=== PATIENT | male | born 1980 | race Caucasian/White ===

== ENCOUNTER 2017-05-18 15:54 | Emergency (ER) | payer OTHER ==
[~2017-05-18] VITALS: Ht 180.3 cm; Wt 87.5 kg
[2017-05-18 16:32] VITALS: TEMP 37; Ht 180.3 cm; Wt 87.5 kg
--- NOTE | 2017-05-18 17:13 | EMERGENCY ROOM VISIT NOTE ---
ED Visit Note First contact with patient: 16:38 CHIEF COMPLAINT: Left dental abscess with worsening facial swelling HISTORY OF PRESENT ILLNESS: This 36-year-old male patient presented to the emergency department, ambulatory, with a progressive toothache for past week. The patient was seen by his dentist last week and started on 500 mg amoxicillin every 6 hours. He has been taking this medication as directed, but states over the past week the swelling and pain have worsened. He states he feels that the swelling is worsening into his face and neck, and he feels his lymph nodes are extremely swollen in the neck. He has an abscess of the left back molar and is scheduled to have surgery in 2 weeks. The pain is now steady and severe and radiates to the face. The patient contacted his dentist today and was advised to come to the emergency department for evaluation due to the worsening symptoms. They rate their pain a 8/10 and the ibuprofen and Tylenol they have been taking has not relieved the pain. Denies fever, but does report chills and feeling as if his face is hot today. The patient denies any discharge from the mouth. He states the gum feels full, and he suspects he would feel better if the wound did open up and drain. REVIEW OF SYSTEMS: A 6 system review of systems was completed with positives and pertinent negatives listed in the HPI. ALLERGIES: None MEDICATIONS: 2 blood pressure medications. The patient is unable to recall their names. PMH: Hypertension SOCIAL HISTORY: The patient lives locally with family. He denies drug use. He admits to smoking 1 pack of cigarettes per day and occasional alcohol use. PHYSICAL EXAM: Vitals are noted on the nurse's note and reviewed by myself. Vital signs stable. Temperature 37.0C orally. GENERAL: This is a 36-year-old white male, in no acute distress, nondiaphoretic, well-developed well- nourished. Mouth: The #17 tooth is very carious and the gum is swollen and tender around it, with mild discharge. No obvious signs of abscess. The remainder of the pharynx and tonsils are without erythema, edema, or exudate. The airway is patent. There is moderate left side facial swelling, cervical and submandibular lymphadenopathy on the left. The patient appears uncomfortable and in pain. The patient has overall poor dental hygiene. EARS: External auditory canals clear, tympanic membranes pearly carson without erythema or effusion bilaterally. RADIOLOGY: CT NECK WITH INTRAVENOUS CONTRAST HISTORY: left lower dental abscess, facial/cervical lymph swelling TECHNIQUE: Multiaxial CT images of the neck were performed following the use of intravenous contrast. COMPARISON STUDY: None. FINDINGS: There is a large cavity involving ADA 18 within the left hemimandible. No significant periapical lucencies identified. However, there is a 1.7 x 0.6 cm peripherally enhancing hypodense area along the lingual surface of the left hemimandible best seen on images 136 through 156. This is consistent with an abscess. There is abnormal soft tissue thickening and enhancement within the left mouth floor likely involving the sublingual space and muscles. There is mild mass effect along the floor of the mouth with rightward deviation. Mild left submandibular lymphadenopathy. There is mild edema within the left sublingual space. Therefore, these findings raise the possibility of developing Dallas's angina. The visualized brain parenchyma and orbits are unremarkable. Mild edema surrounding the left submandibular gland. However, the submandibular and parotid glands enhance normally. The thyroid gland enhances normally. The visualized lungs are clear. No fractures within the visualized osseous structures. The paranasal sinuses and mastoid air cells are clear. Prevertebral soft tissues are normal in thickness. The major cervical vessels enhance normally. IMPRESSION: 1. A 1.7 x 0.6 cm abscess along the lingual surface of the left hemimandible as described above. 2. There is also abnormal soft tissue thickening and enhancement within the left mouth floor likely involving the sublingual space and muscles. There is mild mass effect along the floor of the mouth with rightward deviation. Mild left submandibular lymphadenopathy. There is mild edema within the left sublingual space. Therefore, these findings raise the possibility of developing Dallas's angina. Surgical consultation is advised. Electronically signed by: Eugene Mar M.D. 05/18/2017 6:41 PM Dictated Date/Time: 05/18/2017 6:25 PM ED COURSE: The patient was seen and evaluated as above. IV access obtained, labs drawn. The patient's CBC was without leukocytosis, and renal function was without abnormalities. CT of the soft tissues of the neck with contrast was ordered and reviewed by myself and radiologist. This did show an abscess along the lingual surface of the left hemimandible as well as signs of possibly developing Dallas's angina. I consulted with Dr. Shah who recommended IV Unasyn and Decadron for the swelling and infection. He states he is willing to follow-up with the patient outpatient tomorrow and will potentially perform I&D and removal of the affected tooth tomorrow. He states he will provide PO antibiotics tomorrow as needed after seeing and evaluating the patient. The patient was given 8 mg Decadron and 3 g Unasyn IV and reported feeling significantly improved. I did discuss discharge instructions with the patient. He was given 5 mg oxycodone for his pain. He was provided with a home pack of this medication. The patient was encouraged to avoid p.o. intake overnight in case he is able to have surgery tomorrow. All questions were answered to the patient's satisfaction. Discharge instructions reviewed, the patient was discharged home in good condition. I attest that I have personally reviewed the patient's current medication list. Patient was found to have normal blood pressure on screening and does not require follow-up. Differential diagnosis includes abscess, cellulitis, odontalgia, periapical abscess, Dallas's angina, malignancy, and others DIAGNOSIS: Dental abscess, possible developing [place]'s Angina Current/Historical Medications Scheduled Amoxicillin (Amoxil), 500 MG PO Q6H [Unknown BP Med], 1 DOSE PO QAM [Unknown BP Med], 1 DOSE PO QAM Scheduled PRN Ibuprofen (Motrin), 800 MG PO Q8H PRN for Pain Allergies Coded Allergies: No Known Allergies (Unverified , 05/18/17) Vital Signs Date Time Temp Pulse Resp B/P (MAP) Pulse Ox O2 Delivery O2 Flow Rate FiO2 05/18/17 20:34 75 18 148/96 97 05/18/17 18:48 75 18 159/104 97 Room Air 05/18/17 16:32 37.0 85 18 136/91 98 Room Air Laboratory Results 05/18/17 17:20 Red Blood Count 4.86, Mean Corpuscular Volume 87.4, Mean Corpuscular Hemoglobin 31.1, Mean Corpuscular Hemoglobin Concent 35.5, Mean Platelet Volume 9.9, Neutrophils (%) (Auto) 69.8, Lymphocytes (%) (Auto) 13.4, Monocytes (%) (Auto) 13.9, Eosinophils (%) (Auto) 2.5, Basophils (%) (Auto) 0.2, Neutrophils # (Auto ) 5.84, Lymphocytes # (Auto) 1.12, Monocytes # (Auto) 1.16, Eosinophils # (Auto ) 0.21, Basophils # (Auto) 0.02 05/18/17 17:20 Test 05/18/17 17:20 White Blood Count 8.37 K/uL (4.8-10.8) Red Blood Count 4.86 M/uL (4.7-6.1) Hemoglobin 15.1 g/dL (14.0-18.0) Hematocrit 42.5 % (42-52) Mean Corpuscular Volume 87.4 fL (80-100) Mean Corpuscular Hemoglobin 31.1 pg (25-34) Mean Corpuscular Hemoglobin Concent 35.5 g/dl (32-36) Platelet Count 223 K/uL (130-400) Mean Platelet Volume 9.9 fL (7.4-10.4) Neutrophils (%) (Auto) 69.8 % Lymphocytes (%) (Auto) 13.4 % Monocytes (%) (Auto) 13.9 % Eosinophils (%) (Auto) 2.5 % Basophils (%) (Auto) 0.2 % Neutrophils # (Auto) 5.84 K/uL (1.4-6.5) Lymphocytes # (Auto) 1.12 K/uL (1.2-3.4) Monocytes # (Auto) 1.16 K/uL (0.11-0.59) Eosinophils # (Auto) 0.21 K/uL (0-0.5) Basophils # (Auto) 0.02 K/uL (0-0.2) RDW Standard Deviation 37.0 fL (36.4-46.3) RDW Coefficient of Variation 11.6 % (11.5-14.5) Immature Granulocyte % (Auto) 0.2 % Immature Granulocyte # (Auto) 0.02 K/uL (0.00-0.02) Anion Gap 6.0 mmol/L (3-11) Est Creatinine Clear Calc Drug Dose 101.6 ml/min Estimated GFR () 103.0 Estimated GFR (Non- 88.8 BUN/Creatinine Ratio 13.6 (10-20) Calcium Level 9.1 mg/dl (8.5-10.1) Medications Administered Medications (Trade) Dose Ordered Sig/Janet Route Start Time Stop Time Status Last Admin Dose Admin Ampicillin Sodium/ Sulbactam Sodium 3000 mg/Sodium Chloride 108 ml @ 200 mls/hr ONE STAT IV 05/18/17 19:04 05/18/17 19:36 DC 05/18/17 19:48 200 MLS/HR Dexamethasone Sodium Phosphate (Dexamethasone Inj Pf) 8 mg NOW STAT IV 05/18/17 19:04 05/18/17 19:06 DC 05/18/17 19:21 8 MG Oxycodone HCl (Roxicodone Immediate Rel Tab) 5 mg NOW STAT PO 05/18/17 19:14 05/18/17 19:15 DC 05/18/17 19:21 5 MG Oxycodone HCl (Roxicodone Immediate Rel 5MG Home Pack) 1 homepack UD STAT PO 05/18/17 20:16 05/18/17 20:17 DC 05/18/17 20:33 1 HOMEPACK Departure Information Impression Primary Impression: Abscess of mandible Dispostion Home / Self-Care Condition GOOD Referrals No Doctor, Assigned (PCP) Kieran Shah D.D.S. Patient Instructions ED Abscess Dental, [facility] Additional Instructions You were seen in the emergency department today for a dental abscess. As discussed, there is some changes in the soft tissues of the mouth and neck which suggest possible [place]'s Angina. This can be very dangerous and cause airway obstruction if not treated. You need to contact Dr. Shah's office tomorrow morning at 8:00 am to discuss follow-up outpatient and for possible incision and drainage of the abscess with removal of the tooth. Please do not eat/drink anything after midnight in the case that you are able to have surgery tomorrow for the infection. Oxycodone (OxyIR) 5mg: Take 1-2 pills every four hours as needed for breakthrough pain. Avoid alcohol, operating machinery or dangerous equipment, working on ladders or roofs, DRIVING, or situations where being under the influence may be dangerous. It is recommended to use a stool softener such as Colace, 100mg twice daily while taking this medication to avoid constipation. You should swish/spit with warm salt water to help keep the mouth clean. Return to the ED for any difficulty breathing, worsening swelling, chest pain, fevers, chills, or other concerning symptoms.
[2017-05-18] MEDS ORDERED: OPTIRAY 320 IV PRN (17:15)
[2017-05-18 17:24] LABS: BASO % 0.2 %; BASO ABS # 0.02 K/uL (0-0.2); EOS % 2.5 %; EOS ABS # 0.21 K/uL (0-0.5); HEMATOCRIT 42.5 % (42-52); HEMOGLOBIN 15.1 g/dL (14.0-18.0); IG# 0.02 K/uL (0.00-0.02); LYMPH % 13.4 %; LYMPH ABS # 1.12 K/uL (1.2-3.4); MEAN CELL VOLUME 87.4 fL (80-100); MEAN CORPUSCULAR HEMOGLOBIN 31.1 pg (25-34); MEAN CORPUSCULAR HGB CONC 35.5 g/dl (32-36); MEAN PLATELET VOLUME 9.9 fL (7.4-10.4); MONO % 13.9 %; MONO ABS # 1.16 K/uL (0.11-0.59); NEUT % 69.8 %; NEUT ABS # 5.84 K/uL (1.4-6.5); PLATELET COUNT 223 K/uL (130-400); RED CELL DISTRIBUTION WIDTH CV 11.6 % (11.5-14.5); WHITE BLOOD COUNT 8.37 K/uL (4.8-10.8)
[2017-05-18] MEDS ORDERED: [UNRECOGNIZED DRUG - REMARK] PO (17:25)
[2017-05-18] MEDS ORDERED: AMOX500C3 PO (17:25)
[2017-05-18] MEDS ORDERED: IBUP-1428 PO (17:25)
[2017-05-18 17:39] LABS: CALCIUM 9.1 mg/dl (8.5-10.1); CREATININE 1.07 mg/dl (0.60-1.40); POTASSIUM 4.2 mmol/L (3.5-5.1)
--- NOTE | 2017-05-18 18:42 | DIAGNOSTIC IMAGING REPORT ---
CT NECK WITH INTRAVENOUS CONTRAST HISTORY: left lower dental abscess, facial/cervical lymph swelling TECHNIQUE: Multiaxial CT images of the neck were performed following the use of intravenous contrast. COMPARISON STUDY: None. FINDINGS: There is a large cavity involving ADA 18 within the left hemimandible. No significant periapical lucencies identified. However, there is a 1.7 x 0.6 cm peripherally enhancing hypodense area along the lingual surface of the left hemimandible best seen on images 136 through 156. This is consistent with an abscess. There is abnormal soft tissue thickening and enhancement within the left mouth floor likely involving the sublingual space and muscles. There is mild mass effect along the floor of the mouth with rightward deviation. Mild left submandibular lymphadenopathy. There is mild edema within the left sublingual space. Therefore, these findings raise the possibility of developing Dallas's angina. The visualized brain parenchyma and orbits are unremarkable. Mild edema surrounding the left submandibular gland. However, the submandibular and parotid glands enhance normally. The thyroid gland enhances normally. The visualized lungs are clear. No fractures within the visualized osseous structures. The paranasal sinuses and mastoid air cells are clear. Prevertebral soft tissues are normal in thickness. The major cervical vessels enhance normally. IMPRESSION: 1. A 1.7 x 0.6 cm abscess along the lingual surface of the left hemimandible as described above. 2. There is also abnormal soft tissue thickening and enhancement within the left mouth floor likely involving the sublingual space and muscles. There is mild mass effect along the floor of the mouth with rightward deviation. Mild left submandibular lymphadenopathy. There is mild edema within the left sublingual space. Therefore, these findings raise the possibility of developing Dallas's angina. Surgical consultation is advised. Electronically signed by: Eugene Mar M.D. 05/18/2017 6:41 PM Dictated Date/Time: 05/18/2017 6:25 PM
[2017-05-18] MEDS ORDERED: DEXAMETHASONE **PF** INJ 10 MG/ML VIAL IV STA (19:04)
[2017-05-18] MEDS ORDERED: AMPICILLIN/SULBACTAM SOD INJ 3,000 MG in SODIUM CHLORIDE 0.9% 100ML 100 ML IV STA (19:04)
[2017-05-18] MEDS ORDERED: OXYCODONE HCL IR 5 MG TAB (IMMEDIATE RELEASE) PO STA (19:14)
[2017-05-18] MEDS ORDERED: OXYCODONE IR HOME PACK PO STA (20:16)
[2017-05-18 20:34] VITALS: BP 148/96; PULSE 75; O2SAT 97
== END 2017-05-18 20:36 | disposition home or self-care (01) ==
LOC: C.EDB 15:55 → C.EDD 20:36
DX: K12.2 Cellulitis and abscess of mouth (principal); I10 Essential (primary) hypertension; F17.210 Nicotine dependence, cigarettes, uncomplicated